=== PATIENT | female | born 1940 ===

== ENCOUNTER 2022-10-27 07:30 | Outpatient (CLI) | payer MEDICARE, SELFPAY ==
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
== END 2022-10-27 07:31 | disposition home or self-care (01) ==
LOC: DIET 07:35
PROVIDERS: PCP Nurse Practitioner; Visit Provider Nurse Practitioner Family
DX: Z71.3 Dietary counseling and surveillance (principal); E66.01 Morbid (severe) obesity due to excess calories; Z68.41 Body mass index [BMI] 40.0-44.9, adult
CPT/HCPCS: 97803

== ENCOUNTER 2024-06-13 11:36 | Emergency (ER) | payer MEDICARE, SELFPAY ==
[2024-06-13] VITALS (12 sets, daily range): BP systolic 97–123; BP diastolic 47–64; PULSE 64–105; RESP 16–17; TEMP 35.6; O2SAT 93–100
[2024-06-13] MEDS: etomidate 2 mg/mL INJ SDV 10 mL 30 MG IVP (11:38)
[2024-06-13] MEDS: succinylcholine 20 mg/mL SDV 10mL 120 MG IVP (11:39)
--- NOTE | 2024-06-13 11:41 | ECG_ITS ---
[facility]24[facility]13 Pat Name: Angelic Mantilla Department: Room: Gender: Female Tester Operator Helper: : 1940 Requested By: Vinh Albarran Order Number: [id number] Avelina MD: Jacob Dunaway M.D. Measurements Intervals [place] Rate: 73 P: 79 OR: 168 QRS: 61 QRSD: 105 T: 23 QT: 363 QTc: 403 Interpretive Statements SINUS RHYTHM NONSPECIFIC T-WAVE ABNORMALITY No previous ECG available for comparison Electronically Signed On 06-14-2024 23:09:23 NETWORK TECHNICAL ANALYST by Jacob Dunaway M.D. [email or web address]
--- NOTE | 2024-06-13 11:45 | PC.NURSE ---
cafeteria monitor, b/p monitor, zoll pads/monitor placed on pt on arrival; suction available at bedside
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
[2024-06-13] MEDS: albuterol 2.5 mg/3 mL Neb 7.5 MG INHALATION (11:59)
[2024-06-13 12:03] LABS: ABG PCO2 53.1 mmHg (35-45); ABG PH Result 7.21 (7.35-7.45); Alveolar-Arterial Oxygen Gradi 31.9 mmHg (5-10); Arterial Blood Gas Hematocrit 39.8 % (37-47); Base Excess ABG -7.2 mmol/L (-2.0-2.0); Blood Gas Allen Test Pos; Blood Gas Sample Site Radial, right; Blood Gas Sample Type Arterial; Carboxyhemoglobin 30.5 %THgb (0.4-20.1); HCO3 ABG 21.1 mmol/L (22-26); HGB O2 Sat 68.2 % (95-100); Ionized Calcium Level - ABG 1.2 mmol/L (1.1-1.4); Methemoglobin 1.3 % (0.4-1.5); Oxygen Device AMBU; Oxygen Saturation ABG > 99.1; PO2 FiO2 Ratio Arterial Blood 403; Potassium Level - ABG 3.7 mmol/L (3.5-5.0)
[2024-06-13 12:03] LABS: Basophils % 0.2 %; Eosinophils # 0.1 10^3/uL (0.0-0.8); Eosinophils % 0.8 %; Hematocrit 41.7 % (36-47); Lymphocytes # 2.1 10^3/uL (0.8-4.8); Lymphocytes % 16.2 %; Mean Corpuscular HGB Conc 32.4 g/dL (30-55); Mean Corpuscular Hemoglobin 29.8 pg (27-33); Mean Corpuscular Volume 92.1 fl (85-98); Mean Platelet Volume 10.1 fL (7.4-10.4); Monocytes # 0.4 10^3/uL (0.2-0.9); Monocytes % 3.2 %; Neutrophils # 9.99 10^3/uL (1.8-7.7); Neutrophils % 78.5 %; Nucleated Red Blood Cells % 0 %; Platelet Count 154 10^3/cmm (157-399); Red Blood Count 4.53 10^6/uL (3.85-5.65); Red Cell Distribution Width 12.9 % (12.1-15.1); White Blood Count 12.73 10^3/uL (3.29-11.43)
[2024-06-13] MEDS: fentaNYL 1,000 MCG/100 ML BAG 5 MCG IV (12:05)
[2024-06-13] MEDS: piperacillin-tazobactam 3.375 GM in sodium chloride 0.9% (plus) 50 ML IV (12:06)
[2024-06-13] MEDS: midazolam hcl 100 MG/100 ML BAG IV (12:06)
[2024-06-13] MEDS: sodium chloride 0.9% 1,000 ML 999 ML IV (12:06)
[2024-06-13 12:07] LABS: Blood Gas Operator Identificat BROMA
[2024-06-13] MEDS: dexamethasone 10 mg/mL INJ IVP (12:08)
[2024-06-13] MEDS: ketamine 100 mg/mL Inj 5 mL 200 MG IVP (12:11)
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
[2024-06-13 12:14] LABS: INR 0.99 (0.8-1.2); Partial Thromboplastin Time 26.7 SECONDS (23.9-36.7)
[2024-06-13 12:20] LABS: Troponin(5th) Baseline 15 ng/L (0-10)
--- NOTE | 2024-06-13 12:20 | PC.PHAR ---
patient fills at [facility], called and verified meds with them
[2024-06-13 12:27] LABS: Alanine Aminotransferase 23 U/L (0-33); Albumin Level 3.9 g/dL (3.5-5.2); Alkaline Phosphatase 125 U/L (35-105); Blood Urea Nitrogen 19 mg/dL (8-23); Carbon Dioxide 21 mmol/L (22-29); Chloride 100 mmol/L (98-107); Creatine Phosphokinase 98 U/L (26-192); Creatinine Clr Calc Pharmacy 74.9326; Globulin 3.2 g/dL (1.3-4.6); Glucose 169 mg/dL (65-115); Osmolality Calculated 294 mOsm/kg (285-295); Sodium 139 mmol/L (136-145); Thyroid Stimulating Hormone 4.24 uIU/mL (0.27-4.20); Total Bilirubin 0.3 mg/dL (0.15-1.2); Total Protein 7.1 g/dL (6.6-8.7)
[2024-06-13 12:34] LABS: Anion Gap 22.1 (5-19); Potassium 4.1 mmol/L (3.5-5.1)
[2024-06-13 12:35] LABS: Aspartate Amino Transferase 36 U/L (0-32)
[2024-06-13 12:37] LABS: Lactic Sepsis W/Reflex 8.6 mmol/L (0.5-2.2)
[2024-06-13 12:46] LABS: Bilirubin Urine Negative (Negative); Blood Urine Non-haemolysed trace (Negative); Glucose Urine UA Negative (Normal); Ketones Urine Trace (Negative); Leukocyte Esterase Urine Negative (Negative); Nitrate Urine Positive (Negative); Protein Urine 2+ (Negative); Specific Gravity, Urine 1.016 (1.005-1.030); Urine Appearance Cloudy (CLEAR); Urine Color Yellow (Yellow)
[2024-06-13 12:54] LABS: Add Urine Microscopic? YES; Bacteria Urine 2+ /hpf; Hyaline Casts Urine 66.61 /lpf; RBC Urine 0-2 /hpf (0-2)
[2024-06-13] MEDS: tetanus-diphtheria tox (adult) 0.5 mL SYRINGE IM (13:07)
[2024-06-13 13:08] LABS: Add Urine Culture? Yes; Coarse Granular Casts Urine 0-4 /lpf; UA Slide Review UA Slide Review Perf
[2024-06-13 13:09] LABS: Amorphous Sediment Urine TRACE /hpf
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
--- NOTE | 2024-06-13 13:33 | PC.NURSE ---
pt switched to [employer] [facility] monitoring @0656
[2024-06-13 13:49] LABS: Reflex Lactate Order REFLEX LACTIC ORDERD
== END 2024-06-13 13:06 ==
PROVIDERS: Emergency Provider Family Medicine; PCP Nurse Practitioner
DX: J96.01 Acute respiratory failure with hypoxia (principal); T59.811A Toxic effect of smoke, accidental (unintentional), initial encounter; T58.91XA Toxic effect of carbon monoxide from unspecified source, accidental (unintentional), initial encounter; X58.XXXA Exposure to other specified factors, initial encounter
CPT/HCPCS: 31500; 36600; 51702; 71045; 80051; 80053; 81001; 82330; 82550; 82805; 83605; 83735; 84443; 84484; 85025; 85610; 85730; 87070; 87077; 87086; 87186; 87205; 90714; 93005; 94002; 94640; 94799; 96365; 96367; 96375; 99291; 99292; J0330; J1100; J2250; J2543; J3010; J3490; J7030; J7613

== ENCOUNTER 2024-07-24 16:07 | Outpatient (CLI) | payer MEDICARE, SELFPAY ==
[2024-07-24 16:31] LABS: Add Urine Microscopic? NO
[2024-07-24 16:40] LABS: Bilirubin Urine Negative (Negative); Blood Urine Negative (Negative); Glucose Urine UA Negative (Normal); Ketones Urine Negative (Negative); Leukocyte Esterase Urine Negative (Negative); Nitrate Urine Negative (Negative); Protein Urine Negative (Negative); Urine Appearance Clear (CLEAR); Urine Color Yellow (Yellow); Urobilinogen Urine 0.2 mg/dL (Negative)
[2024-07-24 16:44] LABS: Charge for UA Resulting for Rev
== END 2024-07-24 16:08 | disposition home or self-care (01) ==
PROVIDERS: PCP Nurse Practitioner; Visit Provider Nurse Practitioner Family
DX: N39.0 Urinary tract infection, site not specified (principal)
CPT/HCPCS: 81003; 87086

== ENCOUNTER → 2024-10-02 13:34 | Outpatient (BNVA) | payer MEDICARE, SELFPAY | PROVIDERS: PCP Nurse Practitioner; Visit Provider Internal Medicine | DX: I48.91 Unspecified atrial fibrillation (principal); Z79.01 Long term (current) use of anticoagulants; R07.9 Chest pain, unspecified | CPT/HCPCS: 93005; 99204 ==

== ENCOUNTER → 2025-04-02 14:07 | Outpatient (BNVA) | payer MEDICARE, SELFPAY | PROVIDERS: PCP Nurse Practitioner; Visit Provider Internal Medicine | DX: I48.91 Unspecified atrial fibrillation (principal); Z79.01 Long term (current) use of anticoagulants | CPT/HCPCS: 99214 ==